=== PATIENT | female | born 1995 | race Two or more races ===

== ENCOUNTER 2019-10-26 14:54 | Outpatient (CLI) | payer OTHER | END 2019-10-26 15:00 | disposition home or self-care (01) | LOC: LAB 14:54 | PROVIDERS: ATTEND Emergency Medicine Pediatric Emergency Medicine | DX: Z20.828 Contact with and (suspected) exposure to other viral communicable diseases (principal); Z03.818 Encounter for observation for suspected exposure to other biological agents ruled out ==

== ENCOUNTER 2019-11-27 08:12 | Outpatient (CLI) | payer OTHER | END 2019-11-27 08:20 | disposition home or self-care (01) | LOC: LAB 08:12 | PROVIDERS: ATTEND Obstetrics & Gynecology | DX: N93.8 Other specified abnormal uterine and vaginal bleeding (principal); Z12.11 Encounter for screening for malignant neoplasm of colon; D64.89 Other specified anemias; E03.8 Other specified hypothyroidism; N95.1 Menopausal and female climacteric states; I10 Essential (primary) hypertension; C51.8 Malignant neoplasm of overlapping sites of vulva; N30.00 Acute cystitis without hematuria; A64 Unspecified sexually transmitted disease; R97.8 Other abnormal tumor markers; R79.89 Other specified abnormal findings of blood chemistry; E55.9 Vitamin D deficiency, unspecified ==

== ENCOUNTER 2020-02-09 08:21 | Outpatient (CLI) | payer OTHER | END 2020-02-09 08:25 | disposition home or self-care (01) | LOC: SONOGRAMA 08:21 | PROVIDERS: ATTEND Internal Medicine | DX: E04.2 Nontoxic multinodular goiter (principal) ==

== ENCOUNTER → 2020-12-01 11:00 | Outpatient (CLI) | payer OTHER | END | disposition home or self-care (01) | LOC: PPH VACUNA 11:00 | PROVIDERS: ATTEND Emergency Medicine Pediatric Emergency Medicine | DX: Z23 Encounter for immunization (principal) ==

== ENCOUNTER 2021-02-16 12:29 | Outpatient (CLI) | payer OTHER | END 2021-02-16 12:44 | disposition home or self-care (01) | LOC: LAB 12:29 | PROVIDERS: ATTEND Obstetrics & Gynecology Maternal & Fetal Medicine | DX: Z03.818 Encounter for observation for suspected exposure to other biological agents ruled out (principal); R06.02 Shortness of breath; R50.9 Fever, unspecified ==

== ENCOUNTER 2021-02-20 11:24 | Outpatient (CLI) | payer OTHER | END 2021-02-20 11:39 | disposition home or self-care (01) | LOC: LAB 11:24 | PROVIDERS: ATTEND Obstetrics & Gynecology Maternal & Fetal Medicine | DX: U07.1 COVID-19 (principal); R05.8 Other specified cough; R06.02 Shortness of breath ==

== ENCOUNTER 2021-03-10 09:00 | Outpatient (CLI) | payer OTHER | END 2021-03-10 09:15 | disposition home or self-care (01) | LOC: PPH VACUNA 09:00 | PROVIDERS: ATTEND Emergency Medicine Pediatric Emergency Medicine | DX: Z23 Encounter for immunization (principal) ==

== ENCOUNTER → 2021-08-17 08:16 | Outpatient (CLI) | payer OTHER | END | disposition home or self-care (01) | LOC: LAB 08:16 | PROVIDERS: ATTEND Obstetrics & Gynecology Maternal & Fetal Medicine | DX: Z20.828 Contact with and (suspected) exposure to other viral communicable diseases (principal) ==

== ENCOUNTER 2021-10-25 10:34 | Outpatient (CLI) | payer OTHER | END 2021-10-25 10:39 | disposition home or self-care (01) | LOC: PPH VACUNA 10:34 | PROVIDERS: ATTEND Emergency Medicine Pediatric Emergency Medicine | DX: Z23 Encounter for immunization (principal) ==

== ENCOUNTER 2022-10-19 08:01 | Emergency (ER) | payer OTHER ==
[~2022-10-19] VITALS: Ht 157.5 cm; Wt 59.0 kg
[~2022-10-19 08:01] MED LIST: BENZONATATE200 M1 PO; OSEL75CA PO
[2022-10-19] MEDS ORDERED: MACRODANTIN100 M1 PO (13:03)
== END 2022-10-19 13:53 | disposition home or self-care (01) ==
LOC: ER 08:01
PROVIDERS: General Practice
DX: R10.31 Right lower quadrant pain (principal)

== ENCOUNTER 2022-11-16 11:40 | Outpatient (CLI) | payer OTHER ==
[~2022-11-16 11:40] MED LIST changes: +MACRODANTIN100 M1 PO
== END 2022-11-16 11:50 | disposition home or self-care (01) ==
LOC: PPH VACUNA 11:40
PROVIDERS: ATTEND Emergency Medicine Pediatric Emergency Medicine
DX: Z23 Encounter for immunization (principal)
CPT/HCPCS: 90686; G0008

== ENCOUNTER 2022-12-12 15:39 | Outpatient (CLI) | payer OTHER ==
[2022-12-12 16:07] LABS: URINE APPEARANCE Turbid; URINE BILIRRUBIN Moderate (NEGATIVE); URINE BLOOD Moderate; URINE COLOR Red; URINE GLUCOSE Negative (NEGATIVE); URINE LEUKOCYTE Large; URINE NITRATE Positive; URINE UROBILINOGEN 0.2 E.U./dl
[2022-12-12 16:11] LABS: URINE BACTERIA 6943.8 uL (0.0-1933); URINE EPITHELIAL CELLS 23.1 uL (0.0-38.8)
[2022-12-12 16:12] LABS: URINE PROTEIN 100 (NEGATIVE)
[2022-12-12 16:13] LABS: URINE RBC > 10558.9 uL (0.0-20.8); URINE WBC > 5548.3 uL (0.0-23.2)
[2022-12-12] MEDS ORDERED: MACRODANTIN100 M1 PO (16:28)
== END 2022-12-12 15:43 | disposition home or self-care (01) ==
LOC: LAB 15:39
DX: N39.0 Urinary tract infection, site not specified (principal)

== ENCOUNTER 2023-02-05 07:07 | Outpatient (CLI) | payer OTHER ==
[2023-02-05 08:25] LABS: HEMATOCRIT 37.8 % (36.0-45.00); HEMOGLOBIN 12.5 g/dL (12.0-15.00); MEAN CELL VOLUME 76.3 fL (80.00-100.00); MEAN CORPUSCULAR HEMOGLOBIN 25.3 pg (27.00-32.0); MEAN CORPUSCULAR HGB CONC 33.1 g/dl (32.0-36.0); PLATELET COUNT 251 K/uL (150-450); RED BLOOD COUNT 4.96 M/uL (4.00-6.00); RED CELL DISTRIBUTION WIDTH 14.2 % (11.5-14.5)
[2023-02-05 09:01] LABS: ALBUMIN 3.9 gm/dL (3.4-5.0); CREATININE SERUM 0.67 mg/dL (0.55-1.02); GFR 106.39; PHOSPHOROUS 3.2 mg/dL (2.5-4.9); POTASSIUM 4.34 mEq/L (3.5-5.1); T4 TOTAL 10.78 UG/DL (4.8-13.9); TSH 2.24 uIU/mL (0.358-3.74)
== END 2023-02-05 07:10 | disposition home or self-care (01) ==
LOC: LAB 07:07
PROVIDERS: ATTEND Emergency Medicine Pediatric Emergency Medicine
DX: I10 Essential (primary) hypertension (principal); M54.51 Vertebrogenic low back pain; Z01.810 Encounter for preprocedural cardiovascular examination; E03.9 Hypothyroidism, unspecified; E11.9 Type 2 diabetes mellitus without complications; E11.51 Type 2 diabetes mellitus with diabetic peripheral angiopathy without gangrene; N20.0 Calculus of kidney; N39.0 Urinary tract infection, site not specified

== ENCOUNTER 2023-03-15 07:38 | Outpatient (CLI) | payer OTHER ==
[~2023-03-15 07:38] MED LIST changes: +CIPRO500 MG PO; +ROSADAN45 G1 TOP
== END 2023-03-15 09:40 | disposition home or self-care (01) ==
LOC: RAD 07:38
PROVIDERS: ATTEND Emergency Medicine Pediatric Emergency Medicine
DX: N20.0 Calculus of kidney (principal); N39.0 Urinary tract infection, site not specified; M23.90 Unspecified internal derangement of unspecified knee; M23.52 Chronic instability of knee, left knee; M23.51 Chronic instability of knee, right knee

== ENCOUNTER → 2023-03-15 12:01 | Outpatient (CLI) | payer OTHER ==
[2023-03-15 13:18] LABS: HEMATOCRIT 39.3 % (36.0-45.00); HEMOGLOBIN 13.1 g/dL (12.0-15.00); MEAN CELL VOLUME 75.5 fL (80.00-100.00); MEAN CORPUSCULAR HEMOGLOBIN 25.2 pg (27.00-32.0); MEAN CORPUSCULAR HGB CONC 33.4 g/dl (32.0-36.0); PLATELET COUNT 251 K/uL (150-450); RED CELL DISTRIBUTION WIDTH 14.2 % (11.5-14.5)
[2023-03-15 13:24] LABS: PH,URINE 5.5 (5.0-8.0); URINE APPEARANCE Clear; URINE BILIRRUBIN Negative (NEGATIVE); URINE BLOOD Negative; URINE COLOR Yellow; URINE GLUCOSE Negative (NEGATIVE); URINE LEUKOCYTE Large; URINE NITRATE Negative; URINE PROTEIN Negative (NEGATIVE); URINE UROBILINOGEN 0.2 E.U./dl
[2023-03-15 13:27] LABS: URINE BACTERIA 1504.3 uL (0.0-1933); URINE EPITHELIAL CELLS 33.5 uL (0.0-38.8); URINE WBC 224.9 uL (0.0-23.2)
[2023-03-15 13:58] LABS: ALBUMIN 4.2 gm/dL (3.4-5.0); BILIRUBIN TOTAL 1.12 mg/dL (0.3-1.2); CALCIUM 9.4 mg/dL (8.5-10.1); CREATININE SERUM 0.56 mg/dL (0.55-1.02); GFR 130.86; GLOBULINA 3.8 G/DL (2.4-3.5); PHOSPHOROUS 3.3 mg/dL (2.5-4.9); POTASSIUM 4.12 mEq/L (3.5-5.1)
== END | disposition home or self-care (01) ==
LOC: LAB 12:01
PROVIDERS: ATTEND Internal Medicine
DX: N20.0 Calculus of kidney (principal); N39.0 Urinary tract infection, site not specified; M23.90 Unspecified internal derangement of unspecified knee; M23.52 Chronic instability of knee, left knee

== ENCOUNTER 2023-04-24 12:31 | Outpatient (CLI) | payer OTHER ==
[~2023-04-24 12:31] MED LIST changes: +METRONIDAZOLE500 MG PO
[2023-04-24 14:14] LABS: HEMATOCRIT 36.6 % (36.0-45.00); HEMOGLOBIN 12.1 g/dL (12.0-15.00); MEAN CELL VOLUME 77.9 fL (80.00-100.00); MEAN CORPUSCULAR HEMOGLOBIN 25.8 pg (27.00-32.0); MEAN CORPUSCULAR HGB CONC 33.1 g/dl (32.0-36.0); PLATELET COUNT 221 K/uL (150-450); RED CELL DISTRIBUTION WIDTH 14.9 % (11.5-14.5)
[2023-04-24 14:28] LABS: PH,URINE 6.5 (5.0-8.0); URINE APPEARANCE Clear; URINE BILIRRUBIN Negative (NEGATIVE); URINE BLOOD Negative; URINE COLOR Yellow; URINE GLUCOSE Negative (NEGATIVE); URINE LEUKOCYTE Moderate; URINE NITRATE Negative; URINE PROTEIN Negative (NEGATIVE); URINE UROBILINOGEN 0.2 E.U./dl
[2023-04-24 14:32] LABS: URINE BACTERIA 1278.7 uL (0.0-1933); URINE EPITHELIAL CELLS 36.7 uL (0.0-38.8); URINE WBC 122.4 uL (0.0-23.2)
[2023-04-24 14:34] LABS: CALCIUM 9.2 mg/dL (8.5-10.1); CREATININE SERUM 0.52 mg/dL (0.55-1.02); GFR 142.54; POTASSIUM 3.66 mEq/L (3.5-5.1)
== END 2023-04-24 12:34 | disposition home or self-care (01) ==
LOC: LAB 12:31
PROVIDERS: ATTEND Internal Medicine
DX: N39.0 Urinary tract infection, site not specified (principal); M23.90 Unspecified internal derangement of unspecified knee; M23.52 Chronic instability of knee, left knee

== ENCOUNTER 2023-08-27 11:28 | Emergency (ER) | payer OTHER ==
[~2023-08-27] VITALS: Ht 160 cm; Wt 55.3 kg
[~2023-08-27 11:28] MED LIST changes: +CLEOCIN HCL150 MG PO
[2023-08-27] MEDS ORDERED: LEVOTHYROXINE25 MCG PO (11:39)
[2023-08-27] MEDS ORDERED: ACETAMINOPHEN 500 MG GEL..CAP PO STA (12:09)
[2023-08-27 12:43] LABS: HEMATOCRIT 38.3 % (36.0-45.00); HEMOGLOBIN 12.7 g/dL (12.0-15.00); MEAN CELL VOLUME 76.6 fL (80.00-100.00); MEAN CORPUSCULAR HEMOGLOBIN 25.5 pg (27.00-32.0); MEAN CORPUSCULAR HGB CONC 33.2 g/dl (32.0-36.0); PLATELET COUNT 234 K/uL (150-450); RED BLOOD COUNT 4.99 M/uL (4.00-6.00); RED CELL DISTRIBUTION WIDTH 13.9 % (11.5-14.5)
[2023-08-27 12:52] LABS: CREATININE SERUM 0.58 mg/dL (0.55-1.02); GFR 125.66; POTASSIUM 3.66 mEq/L (3.5-5.1)
[2023-08-27 13:11] LABS: PH,URINE 5.5 (5.0-8.0); URINE APPEARANCE Clear; URINE BILIRRUBIN Negative (NEGATIVE); URINE BLOOD Negative; URINE COLOR Yellow; URINE GLUCOSE Negative (NEGATIVE); URINE LEUKOCYTE Trace; URINE NITRATE Negative; URINE PROTEIN Negative (NEGATIVE); URINE UROBILINOGEN 0.2 E.U./dl
[2023-08-27 13:14] LABS: URINE BACTERIA 178.8 uL (0.0-1933); URINE EPITHELIAL CELLS 17.1 uL (0.0-38.8); URINE RBC 6.1 uL (0.0-20.8); URINE WBC 56.5 uL (0.0-23.2)
== END 2023-08-27 14:16 | disposition home or self-care (01) ==
LOC: ER 11:29
PROVIDERS: General Practice
DX: U07.1 COVID-19 (principal)

== ENCOUNTER 2023-11-29 02:00 | Outpatient (CLI) | payer OTHER ==
[~2023-11-29 02:00] MED LIST changes: +LEVOTHYROXINE25 MCG PO
[2023-12-04] MEDS ORDERED: LEVOTHYROXINE25 MCG PO (17:16)
== END 2023-11-29 03:00 | disposition home or self-care (01) ==
LOC: PPH VACUNA 02:00
PROVIDERS: ATTEND Emergency Medicine Pediatric Emergency Medicine
DX: Z23 Encounter for immunization (principal)

== ENCOUNTER 2023-12-24 07:44 | Outpatient (CLI) | payer OTHER ==
[2023-12-24 08:19] LABS: HEMATOCRIT 37.2 % (36.0-45.00); HEMOGLOBIN 12.2 g/dL (12.0-15.00); MEAN CELL VOLUME 77.3 fL (80.00-100.00); MEAN CORPUSCULAR HEMOGLOBIN 25.5 pg (27.00-32.0); MEAN CORPUSCULAR HGB CONC 32.9 g/dl (32.0-36.0); PLATELET COUNT 231 K/uL (150-450); RED BLOOD COUNT 4.81 M/uL (4.00-6.00); RED CELL DISTRIBUTION WIDTH 14.9 % (11.5-14.5)
[2023-12-24 08:24] LABS: PH,URINE 5.5 (5.0-8.0); URINE APPEARANCE Cloudy; URINE BILIRRUBIN Negative (NEGATIVE); URINE BLOOD Negative; URINE COLOR Yellow; URINE GLUCOSE Negative (NEGATIVE); URINE KETONE Negative (NEGATIVE); URINE LEUKOCYTE Moderate; URINE NITRATE Negative; URINE PROTEIN Negative (NEGATIVE); URINE UROBILINOGEN 0.2 E.U./dl
[2023-12-24 08:28] LABS: URINE BACTERIA 3332.6 uL (0.0-1933); URINE EPITHELIAL CELLS 86.2 uL (0.0-38.8); URINE WBC 312.2 uL (0.0-23.2)
[2023-12-24 09:09] LABS: URINE MUCUS HEAVY
[2023-12-24 09:33] LABS: CALCIUM 8.7 mg/dL (8.5-10.1); CREATININE SERUM 0.56 mg/dL (0.55-1.02); GFR 129.86; POTASSIUM 4.02 mEq/L (3.5-5.1); T4 TOTAL 11.13 UG/DL (4.8-13.9); TSH 4.63 uIU/mL (0.358-3.74)
== END 2023-12-24 07:49 | disposition home or self-care (01) ==
LOC: LAB 07:44
PROVIDERS: ATTEND Internal Medicine
DX: N39.0 Urinary tract infection, site not specified (principal); M23.90 Unspecified internal derangement of unspecified knee; M23.52 Chronic instability of knee, left knee; E03.9 Hypothyroidism, unspecified

== ENCOUNTER → 2024-02-04 08:57 | Outpatient (CLI) | payer OTHER ==
[2024-02-04 11:05] LABS: T4 TOTAL 12.44 UG/DL (4.8-13.9); TSH 1.68 uIU/mL (0.358-3.74)
== END | disposition home or self-care (01) ==
LOC: LAB 08:57
PROVIDERS: ATTEND Internal Medicine
DX: N39.0 Urinary tract infection, site not specified (principal); M23.90 Unspecified internal derangement of unspecified knee; M23.52 Chronic instability of knee, left knee; E03.9 Hypothyroidism, unspecified

== ENCOUNTER 2024-02-11 11:58 | Outpatient (CLI) | payer OTHER ==
[2024-02-13 06:04] LABS: HEPATITIS A ANTIBODY IGG Negative (Negative); HEPATITIS B SURFACE ANTIBODY Non Reactive (.); HEPATITIS C VIRUS ANTIBODY Non Reactive (Non Reactive)
== END 2024-02-11 13:30 | disposition home or self-care (01) ==
LOC: LAB 11:58
DX: A64 Unspecified sexually transmitted disease (principal); B17.9 Acute viral hepatitis, unspecified

== ENCOUNTER 2024-02-17 00:24 | Inpatient (IN) | payer OTHER ==
[~2024-02-17] VITALS: Ht 157.5 cm; Wt 49.9 kg
--- NOTE | 2024-02-17 00:44 | NUR ---
PTE ALERTA Y ORIENTADA X3 REFIERE DOLOR ABDOMINAL, VOMITOS X6 Y DIARREAS X1 SE LE MARTIN S/V Y SE UBICA
[2024-02-17] MEDS ORDERED: HYOSCYAMINE SULFATE 0.125 MG TAB.SUBL SL STA (02:02)
[2024-02-17] MEDS ORDERED: PROMETHAZINE HCL 25 MG/ML AMPUL IM STA (02:03)
[2024-02-17] MEDS ORDERED: LACTOBACILLUS ACIDOPHILUS 1 CAP CAP PO STA (02:04)
--- NOTE | 2024-02-17 02:12 | NUR ---
PTE ALERTA Y ORIENTADA X3 JUNE MERIDA LE ORIENTA SOBRE TX MEDICO LO CUAL REFIERE ENTENDER Y ACEPTAR SE LE REALIZAN [facility]STRAS DE [facility] MEDIDAS ASEPTICAS Y SE LE ADMINISTRA MEDICAMENTO [facility] ORDEN MEDICA
[2024-02-17] MEDS ORDERED: FAMOTIDINE/PF 20 MG/2 ML VIAL IV PUSH SCH (02:15)
[2024-02-17] MEDS ORDERED: 0.9 % SODIUM CHLORIDE 1,000 ML IV ONE ×2 (02:15→16:00)
[2024-02-17 02:57] LABS: HEMATOCRIT 41.8 % (36.0-45.00); HEMOGLOBIN 13.8 g/dL (12.0-15.00); MEAN CELL VOLUME 78.7 fL (80.00-100.00); PLATELET COUNT 206 K/uL (150-450); RED BLOOD COUNT 5.31 M/uL (4.00-6.00); RED CELL DISTRIBUTION WIDTH 13.6 % (11.5-14.5)
[2024-02-17 03:26] LABS: CALCIUM 9.1 mg/dL (8.5-10.1); CREATININE SERUM 0.76 mg/dL (0.55-1.02); GFR 91.29; POTASSIUM 4.35 mEq/L (3.5-5.1)
[2024-02-17] MEDS ORDERED: CIPROFLOXACIN IN 5 % DEXTROSE 400 MG/200 ML PIGGYBAG IV STA (06:48)
[2024-02-17] MEDS ORDERED: METRONIDAZOLE/SODIUM CHLORIDE 500 MG/100 ML PIGGYBACK IV STA (06:49)
[2024-02-17 11:35] LABS: URINE APPEARANCE Cloudy; URINE BILIRRUBIN Negative (NEGATIVE); URINE BLOOD Negative; URINE COLOR Yellow; URINE GLUCOSE Negative (NEGATIVE); URINE KETONE 15 (NEGATIVE); URINE LEUKOCYTE Small; URINE NITRATE Negative; URINE PROTEIN Negative (NEGATIVE); URINE UROBILINOGEN 0.2 E.U./dl
[2024-02-17 11:38] LABS: URINE BACTERIA 1527.3 uL (0.0-1933); URINE EPITHELIAL CELLS 25.3 uL (0.0-38.8); URINE RBC 3.5 uL (0.0-20.8)
[2024-02-17 11:44] LABS: URINE CAST 0.14 uL (0.0-1.40)
[2024-02-17 16:04] VITALS: BP 114/70
[2024-02-17] MEDS ORDERED: 0.9 % SODIUM CHLORIDE 1,000 ML IV SCH (18:15)
[2024-02-17] MEDS ORDERED: ACETAMINOPHEN 500 MG GEL..CAP PO PRN (18:30)
[2024-02-17] MEDS ORDERED: CEFTRIAXONE SODIUM 2,000 MG in 0.9 % SODIUM CHLORIDE 100 ML IV SCH (18:36)
[2024-02-17 20:04] LABS: INR 1.25; PARTIAL THROMBOPLASTIN TIME 28.5 SECONDS (22.0-34.0); PROTHROMBIN TIME 13.4 SECONDS (9.0-11.5)
[2024-02-17 21:57] VITALS: O2SAT 98
[2024-02-17 23:36] VITALS: O2SAT 97
[2024-02-18] VITALS (7 sets, daily range): BP systolic 93–111; BP diastolic 64–75; O2SAT 97–99
[2024-02-18] MEDS ORDERED: METRONIDAZOLE/SODIUM CHLORIDE 100 ML IV SCH (01:00)
[2024-02-18] MEDS ORDERED: FAMOTIDINE/PF 20 MG in 0.9 % SODIUM CHLORIDE 8 ML IV PUSH SCH (09:00)
[2024-02-18] MEDS ORDERED: CEFTRIAXONE SODIUM 2,000 MG in 0.9 % SODIUM CHLORIDE 100 ML IV SCH (17:00)
[2024-02-19 00:35] VITALS: BP 109/67; O2SAT 99
[2024-02-19 01:11] VITALS: O2SAT 98
[2024-02-19 06:00] VITALS: O2SAT 99
[2024-02-19 07:45] LABS: HEMATOCRIT 33.8 % (36.0-45.00); HEMOGLOBIN 11.2 g/dL (12.0-15.00); MEAN CELL VOLUME 78.5 fL (80.00-100.00); MEAN CORPUSCULAR HGB CONC 33.1 g/dl (32.0-36.0); PLATELET COUNT 158 K/uL (150-450); RED BLOOD COUNT 4.31 M/uL (4.00-6.00); RED CELL DISTRIBUTION WIDTH 13.6 % (11.5-14.5)
[2024-02-19 08:39] VITALS: BP 110/68; O2SAT 100
[2024-02-19 09:56] VITALS: O2SAT 100
[2024-02-19] MEDS ORDERED: SULFAMETHOXAZOL20 ML PO (12:59)
[2024-02-19 13:46] VITALS: O2SAT 86
== END 2024-02-19 15:10 | disposition home or self-care (01) | DRG 872 ==
LOC: ER 00:26 → MEDI 19:30
PROVIDERS: General Practice; ADMIT Student in an Organized Health Care Education/Training Program; ATTEND Student in an Organized Health Care Education/Training Program
PROC: 4A12X4Z Monitoring of Cardiac Electrical Activity, External Approach (ICD-10-PCS; principal; 2024-02-17)
PROC: BW21YZZ Computerized Tomography (CT Scan) of Abdomen and Pelvis using Other Contrast (ICD-10-PCS; 2024-02-17)
DX: A41.9 Sepsis, unspecified organism (principal); N39.0 Urinary tract infection, site not specified; K52.89 Other specified noninfective gastroenteritis and colitis; E86.0 Dehydration

== ENCOUNTER 2024-03-14 12:03 | Outpatient (CLI) | payer OTHER ==
[~2024-03-14 12:03] MED LIST changes: +ARTHRITIS PAIN150 GM TD; +CYCLOBENZAPRINE10 MG PO; +CYCLOBENZAPRINE15 M1 PO; +SULFAMETHOXAZOL20 ML PO
[2024-03-14 12:34] LABS: HEMATOCRIT 37.1 % (36.0-45.00); HEMOGLOBIN 12.3 g/dL (12.0-15.00); MEAN CELL VOLUME 76.7 fL (80.00-100.00); MEAN CORPUSCULAR HEMOGLOBIN 25.5 pg (27.00-32.0); MEAN CORPUSCULAR HGB CONC 33.2 g/dl (32.0-36.0); PLATELET COUNT 280 K/uL (150-450); RED BLOOD COUNT 4.83 M/uL (4.00-6.00); RED CELL DISTRIBUTION WIDTH 14.4 % (11.5-14.5)
[2024-03-14 12:45] LABS: PH,URINE 5.5 (5.0-8.0); URINE APPEARANCE Clear; URINE BILIRRUBIN Negative (NEGATIVE); URINE BLOOD Negative; URINE COLOR Yellow; URINE GLUCOSE Negative (NEGATIVE); URINE KETONE Negative (NEGATIVE); URINE LEUKOCYTE Negative; URINE NITRATE Negative; URINE PROTEIN Negative (NEGATIVE); URINE UROBILINOGEN 0.2 E.U./dl
[2024-03-14 12:48] LABS: URINE BACTERIA 156.6 uL (0.0-1933); URINE EPITHELIAL CELLS 11.8 uL (0.0-38.8); URINE RBC 2.3 uL (0.0-20.8); URINE WBC 4.4 uL (0.0-23.2)
[2024-03-14 14:11] LABS: URINE CAST 0.29 uL (0.0-1.40)
[2024-03-14 14:57] LABS: ALBUMIN 3.8 gm/dL (3.4-5.0); BILIRUBIN TOTAL 1.08 mg/dL (0.3-1.2); CREATININE SERUM 0.52 mg/dL (0.55-1.02); GFR 141.45; GLOBULINA 3.6 G/DL (2.4-3.5); POTASSIUM 3.91 mEq/L (3.5-5.1); T4 TOTAL 12.09 UG/DL (4.8-13.9); TOTAL PROTEIN 7.4 gm/dL (6.4-8.2); TSH 1.76 uIU/mL (0.358-3.74)
== END 2024-03-14 12:07 | disposition home or self-care (01) ==
LOC: LAB 12:03
PROVIDERS: ATTEND Obstetrics & Gynecology Maternal & Fetal Medicine
DX: N39.9 Disorder of urinary system, unspecified (principal); M23.90 Unspecified internal derangement of unspecified knee; M23.52 Chronic instability of knee, left knee; E03.9 Hypothyroidism, unspecified

== ENCOUNTER 2024-03-23 09:31 | Outpatient (CLI) | payer OTHER ==
[2024-03-23 11:13] LABS: ALBUMIN 3.7 gm/dL (3.4-5.0); CALCIUM 9.3 mg/dL (8.5-10.1); CREATININE SERUM 0.57 mg/dL (0.55-1.02); GFR 127.23; PHOSPHOROUS 3.3 mg/dL (2.5-4.9); POTASSIUM 4.57 mEq/L (3.5-5.1)
== END 2024-03-23 23:00 | disposition home or self-care (01) ==
LOC: LAB 09:31
PROVIDERS: ATTEND General Practice
DX: Z04.9 Encounter for examination and observation for unspecified reason (principal)

== ENCOUNTER 2024-03-24 07:37 | Outpatient (CLI) | payer OTHER | END 2024-03-24 07:50 | disposition home or self-care (01) | LOC: TOM 07:37 | PROVIDERS: ATTEND Otolaryngology Otology & Neurotology | DX: L04.9 Acute lymphadenitis, unspecified (principal); R22.1 Localized swelling, mass and lump, neck ==

== ENCOUNTER 2024-03-31 11:37 | Outpatient (CLI) | payer OTHER ==
[2024-03-31 12:40] LABS: URINE APPEARANCE Clear; URINE BACTERIA 144.4 uL (0.0-1933); URINE BILIRRUBIN Negative (NEGATIVE); URINE BLOOD Negative; URINE COLOR Yellow; URINE EPITHELIAL CELLS 9.7 uL (0.0-38.8); URINE GLUCOSE Negative (NEGATIVE); URINE KETONE Negative (NEGATIVE); URINE LEUKOCYTE Negative; URINE NITRATE Negative; URINE PROTEIN Negative (NEGATIVE); URINE UROBILINOGEN 0.2 E.U./dl
[2024-03-31 12:46] LABS: HEMOGLOBIN 12.6 g/dL (12.0-15.00); MEAN CELL VOLUME 77.7 fL (80.00-100.00); MEAN CORPUSCULAR HEMOGLOBIN 25.2 pg (27.00-32.0); MEAN CORPUSCULAR HGB CONC 32.4 g/dl (32.0-36.0); PLATELET COUNT 292 K/uL (150-450); RED BLOOD COUNT 5.02 M/uL (4.00-6.00); RED CELL DISTRIBUTION WIDTH 14.4 % (11.5-14.5)
[2024-03-31 13:01] LABS: URINE RBC 1.4 uL (0.0-20.8); URINE WBC 1.4 uL (0.0-23.2)
[2024-03-31 13:45] LABS: ALBUMIN 3.8 gm/dL (3.4-5.0); BILIRUBIN TOTAL 1.02 mg/dL (0.3-1.2); CALCIUM 9.2 mg/dL (8.5-10.1); CHOL HDL RATIO 2.4 (0-5.0); CREATININE SERUM 0.52 mg/dL (0.55-1.02); GFR 141.45; GLOBULINA 3.3 G/DL (2.4-3.5); POTASSIUM 4.4 mEq/L (3.5-5.1); T4 TOTAL 11.24 UG/DL (4.8-13.9); TOTAL PROTEIN 7.1 gm/dL (6.4-8.2); TSH 1.82 uIU/mL (0.358-3.74)
[2024-03-31 14:03] LABS: T3 TOTAL 1.46 ng/ml (0.846-2.02); VITAMIN D3 25 HYDROXY 18.13 ng/ml (30-120)
[2024-03-31 16:29] LABS: ob NEGATIVE (NEGATIVE)
== END 2024-03-31 11:40 | disposition home or self-care (01) ==
LOC: LAB 11:37
PROVIDERS: ATTEND Internal Medicine
DX: N39.0 Urinary tract infection, site not specified (principal); M23.90 Unspecified internal derangement of unspecified knee; M23.52 Chronic instability of knee, left knee; E03.9 Hypothyroidism, unspecified

== ENCOUNTER → 2024-04-27 13:53 | Outpatient (CLI) | payer OTHER ==
[~2024-04-27 13:53] MED LIST changes: +HYDROCORTISO453.6 G1 TOP; +ZITHROMAX TRI-500 MG PO
[2024-04-27 14:31] LABS: PH,URINE 5.5 (5.0-8.0); URINE APPEARANCE Clear; URINE BILIRRUBIN Negative (NEGATIVE); URINE BLOOD Negative; URINE COLOR Yellow; URINE GLUCOSE Negative (NEGATIVE); URINE KETONE Negative (NEGATIVE); URINE LEUKOCYTE Negative; URINE NITRATE Negative; URINE PROTEIN Negative (NEGATIVE)
[2024-04-27 14:36] LABS: URINE BACTERIA 78.3 uL (0.0-1933); URINE EPITHELIAL CELLS 16.4 uL (0.0-38.8); URINE WBC 2.5 uL (0.0-23.2)
[2024-04-27 14:40] LABS: HEMATOCRIT 38.1 % (36.0-45.00); HEMOGLOBIN 12.5 g/dL (12.0-15.00); MEAN CELL VOLUME 77.7 fL (80.00-100.00); MEAN CORPUSCULAR HEMOGLOBIN 25.4 pg (27.00-32.0); MEAN CORPUSCULAR HGB CONC 32.7 g/dl (32.0-36.0); PLATELET COUNT 274 K/uL (150-450); RED BLOOD COUNT 4.91 M/uL (4.00-6.00)
[2024-04-27 15:21] LABS: CREATININE SERUM 0.49 mg/dL (0.55-1.02); GFR 151.49; POTASSIUM 3.98 mEq/L (3.5-5.1); T4 TOTAL 11.56 UG/DL (4.8-13.9); TSH 1.08 uIU/mL (0.358-3.74)
[2024-04-27 15:24] LABS: URINE CAST 0.44 uL (0.0-1.40); URINE RBC 1.9 uL (0.0-20.8)
== END | disposition home or self-care (01) ==
LOC: LAB 13:53
PROVIDERS: ATTEND Internal Medicine
DX: N39.0 Urinary tract infection, site not specified (principal); M23.90 Unspecified internal derangement of unspecified knee; M23.52 Chronic instability of knee, left knee; E03.9 Hypothyroidism, unspecified

== ENCOUNTER 2024-05-21 15:12 | Outpatient (CLI) | payer OTHER | END 2024-05-21 15:14 | disposition home or self-care (01) | LOC: SONOGRAMA 15:12 | PROVIDERS: ATTEND Pathology Anatomic Pathology & Clinical Pathology | DX: R59.0 Localized enlarged lymph nodes (principal) ==

== ENCOUNTER → 2024-05-29 11:31 | Outpatient (CLI) | payer OTHER ==
[2024-05-29 12:14] LABS: HEMATOCRIT 39.9 % (36.0-45.00); HEMOGLOBIN 13.1 g/dL (12.0-15.00); MEAN CELL VOLUME 78.1 fL (80.00-100.00); MEAN CORPUSCULAR HEMOGLOBIN 25.6 pg (27.00-32.0); MEAN CORPUSCULAR HGB CONC 32.8 g/dl (32.0-36.0); PLATELET COUNT 247 K/uL (150-450); RED BLOOD COUNT 5.11 M/uL (4.00-6.00); RED CELL DISTRIBUTION WIDTH 14.7 % (11.5-14.5)
[2024-05-29 12:20] LABS: URINE APPEARANCE Clear; URINE BILIRRUBIN Negative (NEGATIVE); URINE BLOOD Negative; URINE COLOR Yellow; URINE GLUCOSE Negative (NEGATIVE); URINE KETONE Negative (NEGATIVE); URINE LEUKOCYTE Negative; URINE NITRATE Negative; URINE PROTEIN Negative (NEGATIVE); URINE UROBILINOGEN 0.2 E.U./dl
[2024-05-29 12:24] LABS: URINE EPITHELIAL CELLS 29.2 uL (0.0-38.8); URINE RBC 4.7 uL (0.0-20.8); URINE WBC 5.8 uL (0.0-23.2)
[2024-05-29 12:25] LABS: URINE CAST 0.58 uL (0.0-1.40)
[2024-05-29 13:55] LABS: ALBUMIN 4.2 gm/dL (3.4-5.0); BILIRUBIN TOTAL 2.2 mg/dL (0.3-1.2); CALCIUM 8.9 mg/dL (8.5-10.1); CHOL HDL RATIO 2.1 (0-5.0); CREATININE SERUM 0.58 mg/dL (0.55-1.02); FREE TRIODOTIRONINE 3.04 pg/ml (2.18-3.98); GFR 124.7; GLOBULINA 3.5 G/DL (2.4-3.5); POTASSIUM 3.63 mEq/L (3.5-5.1); T4 FREE 1.44 NG/ML (0.76-1.46); TOTAL PROTEIN 7.7 gm/dL (6.4-8.2); TSH 0.796 uIU/mL (0.358-3.74)
[2024-05-29 13:56] LABS: T4 TOTAL 14.97 UG/DL (4.8-13.9)
[2024-05-29 14:19] LABS: VITAMIN D3 25 HYDROXY 13.68 ng/ml (30-120)
== END | disposition home or self-care (01) ==
LOC: LAB 11:31
PROVIDERS: ATTEND Obstetrics & Gynecology Maternal & Fetal Medicine
DX: M93.80 Other specified osteochondropathies of unspecified site (principal); Z12.11 Encounter for screening for malignant neoplasm of colon; E03.8 Other specified hypothyroidism; N95.1 Menopausal and female climacteric states; I10 Essential (primary) hypertension; E83.51 Hypocalcemia; A64 Unspecified sexually transmitted disease; N39.0 Urinary tract infection, site not specified; R97.8 Other abnormal tumor markers; R79.89 Other specified abnormal findings of blood chemistry

== ENCOUNTER 2024-06-05 15:05 | Outpatient (CLI) | payer OTHER | END 2024-06-05 15:08 | disposition home or self-care (01) | LOC: LAB 15:05 | PROVIDERS: ATTEND Specialist | DX: R97.1 Elevated cancer antigen 125 [CA 125] (principal); N93.8 Other specified abnormal uterine and vaginal bleeding ==

== ENCOUNTER → 2024-07-03 10:27 | Outpatient (CLI) | payer OTHER | END | disposition home or self-care (01) | LOC: NUCLEAR 10:27 | PROVIDERS: ATTEND Internal Medicine | DX: R00.2 Palpitations (principal) ==

== ENCOUNTER 2024-07-08 08:27 | Outpatient (CLI) | payer OTHER | END 2024-07-08 08:29 | disposition home or self-care (01) | LOC: NUCLEAR 08:27 | PROVIDERS: ATTEND Internal Medicine | DX: R00.2 Palpitations (principal) ==

== ENCOUNTER 2024-07-15 11:48 | Outpatient (CLI) | payer OTHER | END 2024-07-15 11:51 | disposition home or self-care (01) | LOC: SONOGRAMA 11:48 | PROVIDERS: ATTEND Internal Medicine Gastroenterology | DX: E80.7 Disorder of bilirubin metabolism, unspecified (principal) ==

== ENCOUNTER 2024-07-16 12:16 | Outpatient (CLI) | payer OTHER ==
[2024-07-16 14:09] LABS: BILIRUBIN TOTAL 2.42 mg/dL (0.3-1.2); BILIRUBIN,CONJUGATED 0.41 mg/dL (0.0-0.2); BILIRUBIN,UNCONJUGATED 2.01 mg/dL (0.0-0.6)
[2024-07-16 14:10] LABS: BILIRUBIN TOTAL 2.31 mg/dL (0.3-1.2); CALCIUM 8.8 mg/dL (8.5-10.1); CREATININE SERUM 0.5 mg/dL (0.55-1.02); GLOBULINA 3.5 G/DL (2.4-3.5); POTASSIUM 4.35 mEq/L (3.5-5.1); TOTAL PROTEIN 7.5 gm/dL (6.4-8.2)
== END 2024-07-16 12:23 | disposition home or self-care (01) ==
LOC: LAB 12:16
PROVIDERS: ATTEND Internal Medicine Gastroenterology
DX: E80.7 Disorder of bilirubin metabolism, unspecified (principal)

== ENCOUNTER 2024-07-18 10:48 | Outpatient (CLI) | payer OTHER | END 2024-07-18 10:49 | disposition home or self-care (01) | LOC: RAD 10:48 | DX: Z00.00 Encounter for general adult medical examination without abnormal findings (principal) ==

== ENCOUNTER 2024-09-12 09:40 | Outpatient (CLI) | payer OTHER ==
[2024-09-12 11:11] LABS: BASO % 0.5 % (0.1-1.2); EOS # 0.11 (0.04-0.54); EOS % 1.5 % (0.7-7.0); LYMPH # 1.80 (1.18-3.74); LYMPH % 24.5 % (19.3-53.1); MEAN PLATELET VOLUME 11.10 fl (9.4-12.4); MONO # 0.46 (0.24-0.82); MONO % 6.3 % (4.7-12.5); NEUT # 4.91 (1.56-6.13); NEUT % 66.8 % (34.0-71.1); RED CELL DISTRIBUTION WIDTH 13.6 % (11.6-14.4)
[2024-09-12 11:27] LABS: URINE APPEARANCE Clear; URINE BILIRRUBIN Negative (NEGATIVE); URINE BLOOD Negative; URINE COLOR Dark Yellow; URINE GLUCOSE Negative (NEGATIVE); URINE KETONE Trace (NEGATIVE); URINE LEUKOCYTE Negative; URINE NITRATE Negative; URINE PROTEIN Trace (NEGATIVE); URINE UROBILINOGEN 1.0 E.U./dl
[2024-09-12 11:32] LABS: URINE BACTERIA 305.9 uL (0.0-1933); URINE EPITHELIAL CELLS 16.5 uL (0.0-38.8); URINE RBC 2.6 uL (0.0-20.8); URINE WBC 7.2 uL (0.0-23.2)
[2024-09-12 11:51] LABS: URINE CAST 0.00 uL (0.0-1.40)
[2024-09-12 12:08] LABS: ALT/SGPT 39.0 U/L (12-78); AST/SGOT 17.0 U/L (15-37); BILIRUBIN TOTAL 1.7 mg/dL (0.3-1.2); BILIRUBIN,CONJUGATED 0.32 mg/dL (0.0-0.2); BUN CREA RATIO 22.0 (7.0-25.0); CHOL HDL RATIO 2.3 (0-5.0); CREATININE SERUM 0.6 mg/dL (0.55-1.02); GFR 119.92; GLOBULINA 3.4 G/DL (2.4-3.5); GLUCOSE FASTING 78.0 mg/dL (65-100); HDL 65.0 mg/dl (40-60); LDL 75.0 mg/dl (0-130); OSMOLALITY SERUM 280.0 MOSM/KG (275-295); T3 UPTAKE 29.0 % (30-39); T4 TOTAL 10.02 UG/DL (4.8-13.9); TSH 3.63 uIU/mL (0.358-3.74); VLDL 9.0 (0-39)
[2024-09-15 05:07] LABS: PROLACTIN 9.8 ng/mL (4.8-33.4)
[2024-09-15 07:11] LABS: HSV I IGG TYPE SPECIFIC Non Reactive (Non Reactive); hav igm Negative (Negative); hep b c Negative (Negative); hep b s ag Negative (Negative)
== END 2024-09-12 10:06 | disposition home or self-care (01) ==
LOC: LAB 09:40
PROVIDERS: ATTEND Obstetrics & Gynecology Maternal & Fetal Medicine
DX: E80.7 Disorder of bilirubin metabolism, unspecified (principal); N39.9 Disorder of urinary system, unspecified; M23.90 Unspecified internal derangement of unspecified knee; M23.52 Chronic instability of knee, left knee; E03.9 Hypothyroidism, unspecified; Z12.11 Encounter for screening for malignant neoplasm of colon; D64.9 Anemia, unspecified; E03.8 Other specified hypothyroidism; N95.1 Menopausal and female climacteric states; I10 Essential (primary) hypertension; C51.9 Malignant neoplasm of vulva, unspecified; A64 Unspecified sexually transmitted disease; N39.0 Urinary tract infection, site not specified; R97.8 Other abnormal tumor markers; R79.89 Other specified abnormal findings of blood chemistry; E55.9 Vitamin D deficiency, unspecified; A60.9 Anogenital herpesviral infection, unspecified; R97.1 Elevated cancer antigen 125 [CA 125]; E78.00 Pure hypercholesterolemia, unspecified; Z11.59 Encounter for screening for other viral diseases; K76.9 Liver disease, unspecified; B19.9 Unspecified viral hepatitis without hepatic coma

== ENCOUNTER → 2024-12-18 08:18 | Outpatient (CLI) | payer OTHER ==
[~2024-12-18 08:18] MED LIST changes: +AMOXICILLIN500 M1 PO
== END | disposition home or self-care (01) ==
LOC: RAD 08:18
PROVIDERS: ATTEND Internal Medicine Pulmonary Disease
DX: R05.2 Subacute cough (principal)

== ENCOUNTER 2024-12-18 08:39 | Outpatient (CLI) | payer OTHER | END 2024-12-18 08:43 | disposition home or self-care (01) | LOC: LAB 08:39 | PROVIDERS: ATTEND Internal Medicine Pulmonary Disease | DX: J45.30 Mild persistent asthma, uncomplicated (principal); E83.9 Disorder of mineral metabolism, unspecified ==

== ENCOUNTER 2024-12-25 15:30 | Outpatient (CLI) | payer OTHER | END 2024-12-25 15:40 | disposition home or self-care (01) | LOC: PPH VACUNA 15:30 | PROVIDERS: ATTEND Emergency Medicine Pediatric Emergency Medicine | DX: Z23 Encounter for immunization (principal) ==

== ENCOUNTER 2025-02-10 08:20 | Outpatient (CLI) | payer OTHER ==
[2025-02-11] MEDS ORDERED: OSELTAMIVIR PHO75 MG PO (09:21)
[2025-02-11] MEDS ORDERED: ZITHROMAX TRI-500 MG PO (09:22)
== END 2025-02-10 08:22 | disposition home or self-care (01) ==
LOC: PRENATAL 08:20
DX: Z76.1 Encounter for health supervision and care of foundling (principal)